=== PATIENT | male | born 1960 | race Caucasian/White ===

== ENCOUNTER → 2017-12-25 | Outpatient (CLI) | payer OTHER ==
[~2017-12-25] MED LIST: HYDACE5 PO
== END ==
LOC: LAB EV 09:49
DX: G89.4 Chronic pain syndrome (principal)

== ENCOUNTER → 2019-03-18 | Outpatient (CLI) | payer OTHER ==
[2019-03-18 14:06] LABS: Bacteria Few /hpf; Mucus Light (0-Heavy); Squamous Epithelial Cells Not Seen /hpf (Few)
[2019-03-18 14:37] LABS: Creatinine, Urine Random 80.8 mg/dL (27.00-270.00)
== END | disposition home or self-care (01) ==
LOC: LAB 08:45 → LAB SHORT 08:45
PROVIDERS: Internal Medicine
DX: N18.2 Chronic kidney disease, stage 2 (mild) (principal); N13.2 Hydronephrosis with renal and ureteral calculous obstruction
CPT/HCPCS: 81015; 82570; 84156; 87086

== ENCOUNTER 2021-04-28 06:52 | Day surgery (SDC) | payer OTHER ==
[~2021-04-28] VITALS: Ht 177.8 cm; Wt 98.5 kg
[~2021-04-28 06:52] MED LIST changes: +ACYC800 PO; +BENAZEPRIL HCL5 M2 PO; +GEMF600 PO; +GLIP5 PO; +TAMS.4ER PO
== END 2021-04-28 08:49 | disposition home or self-care (01) ==
LOC: ORSCSDS 06:52
PROVIDERS: Surgery
PROC: 0DJD8ZZ Inspection of Lower Intestinal Tract, Via Natural or Artificial Opening Endoscopic (ICD-10-PCS; principal; 2021-04-28 08:00)
DX: Z12.11 Encounter for screening for malignant neoplasm of colon (principal); Z80.0 Family history of malignant neoplasm of digestive organs; Z86.010 Personal history of colon polyps; E78.5 Hyperlipidemia, unspecified; I10 Essential (primary) hypertension; E66.9 Obesity, unspecified; Z68.31 Body mass index [BMI] 31.0-31.9, adult; K57.30 Diverticulosis of large intestine without perforation or abscess without bleeding; Z79.899 Other long term (current) drug therapy
CPT/HCPCS: 82947; J0330; J0461; J2405; J7120